=== PATIENT | female | born 1985 | race Caucasian/White ===

== ENCOUNTER 2019-12-04 10:29 | Outpatient (CLI) | payer OTHER, SELFPAY ==
[2019-12-04 11:05] LABS: Alanine Aminotransferase 22 U/L (4-35); Albumin Level 4.4 g/dL (3.5-5.1); Alkaline Phosphatase 54 U/L (38-126); Aspartate Amino Transferase 21 U/L (14-36); Bilirubin,Total 0.3 mg/dL (0.2-1.3)
[2019-12-04 11:57] LABS: Free T4 Free Thyroxine 0.74 ng/mL (0.78-2.19)
== END 2019-12-04 10:30 | disposition home or self-care (01) ==
PROVIDERS: PCP Family Medicine; Visit Provider Obstetrics & Gynecology
DX: R23.2 Flushing (principal); R74.8 Abnormal levels of other serum enzymes
CPT/HCPCS: 36415; 80076; 83001; 84439; 84443

== ENCOUNTER 2020-03-23 10:19 | Outpatient (CLI) | payer OTHER, SELFPAY ==
--- NOTE | ~2020-03-23 | US_ITS ---
EXAMINATION: US pelvic complete w TV EXAM DATE: 03/23/2020 12:21 INDICATION: Pelvic, perineal pain. TECHNIQUE: Pelvic transabdominal and transvaginal sonogram was performed. There are multiple graysca le and Doppler images available for interpretation. Comparison is made to prior examination from 2013. FINDINGS: Uterus measures 7.7 x 5.6 x 3.8 cm, is anteverted and morphologically normal. Endometrial stripe measures 6 mm, within normal limits. There is a nabothian cyst. There is no free pelvic flui d. Right adnexa: The ovary measures 3.6 x 1.5 x 2.0 cm and is morphologically normal. Ovarian vascular f low confirmed. Left adnexa: The ovary measures 3.8 x 2.1 x 2.1 cm and is morphologically normal. Ovarian vascular fl ow confirmed. IMPRESSION: 1. Unremarkable pelvic ultrasound exam. Reviewed, dictated and finalized at location A.
== END 2020-03-23 10:20 | disposition home or self-care (01) ==
LOC: ANHIMG 10:22
PROVIDERS: PCP Family Medicine; Visit Provider Obstetrics & Gynecology
DX: R10.2 Pelvic and perineal pain (principal)
CPT/HCPCS: 76830; 76856

== ENCOUNTER 2021-08-27 11:00 | Outpatient (CLI) | payer OTHER, SELFPAY ==
[2021-08-27 11:51] LABS: Alanine Aminotransferase 19 U/L (4-35); Albumin Level 4.8 g/dL (3.5-5.1); Alkaline Phosphatase 55 U/L (38-126); Aspartate Amino Transferase 23 U/L (14-36); Bilirubin,Total 0.6 mg/dL (0.2-1.3)
== END 2021-08-27 11:01 | disposition home or self-care (01) ==
LOC: ANHLAB 11:02
PROVIDERS: PCP Family Medicine; Visit Provider Obstetrics & Gynecology
DX: Z13.9 Encounter for screening, unspecified (principal)
CPT/HCPCS: 36415; 80076

== ENCOUNTER 2021-09-24 11:28 | Outpatient (CLI) | payer OTHER, SELFPAY | END 2021-09-24 11:29 | disposition home or self-care (01) | LOC: ANHSURGERY 11:34 | PROVIDERS: PCP Family Medicine; Visit Provider Obstetrics & Gynecology | DX: Z01.812 Encounter for preprocedural laboratory examination (principal); R10.2 Pelvic and perineal pain | CPT/HCPCS: 36415; 86850; 86900; 86901 ==

== ENCOUNTER 2021-09-30 02:29 | Day surgery (SDC) | payer OTHER, MEDICARE, SELFPAY ==
[2021-09-21 11:25] VITALS: BMI 26.2
--- NOTE | 2021-09-21 11:38 | PC.NURSE ---
Report to the Outpatient Waiting Room, entrance under the green pavilion located off [facility], at time 6:30 on date 09/30/21. OR Time: 8:30. - You will be asked a series of questions to screen for COVID 19 for your protection. - A mask is required within the hospital. - No visitors are allowed at this time. Preoperative COVID Testing Requirements: TO BRING COPY OF COVID CARD No COVID Test needed if: (proof is required; if not received patient will have Rapid Test prior to entry) - Patient has received COVID Vaccine at least 14 days prior to procedure date or - Patient has positive COVID test result within last 90 days of surgery date. COVID Test needed if above criteria is not met Patients may have clear liquids (water, carbonated beverages, clear teas, apple juice) until 3 hours prior to surgery (5:30) with a maximum of 20 ounces. - No food from midnight until time of surgery Take the following medications with a SIP of water the morning of surgery: ORILISSA Medications to discontinue per physician: VITAMINS/SUPPLEMENTS Date to take last dose: 09/26/21 Please no make-up, nail pakistani, hairspray, perfume, deodorant, or body powder the day of surgery. No jewelry (including any body piercings) or valuables the day of surgery, leave them at home. Please take a shower or bath the night before, or the morning of, surgery with an antibacterial soap. Wear comfortable, loose fitting clothing. - Jewelry must be removed prior to entering the operating room. Rings and piercings that are not removed may be cut off. - The hospital will not accept responsibility for valuables. - Please leave all valuables, including medications, at home the day of surgery. If you are going home after surgery, a licensed courtesy car driver must drive you home. - NO public transportation without another adult. - We recommend that an adult stay with you for 24 hours following discharge. - We also recommend that you do not drive, make important decision, drink alcoholic beverages, or take any drugs that were not prescribed by your health care provider for at least 24 hours after your discharge time. Follow any additional instructions given to you from your surgeon. Telephone instructions given to ORALIA MOSER and asked if any additional questions and then verbalized understanding. Patient advised to call surgeon office or pre surgery nurse liaison [phone] if any additional questions.
--- NOTE | 2021-09-29 16:15 | WPDANESEPPF ---
Anes - Initial Pre Proc Eval Procedure: Operation Date: 09/30/21 07:30 Proposed Procedures p Robotic Hysterectomy with Bilateral Salpingectomy - Manas Davila MD Date/Time: 09/29/21 16:15 Surgeon: Manas Davila MD Pre Op Diagnosis: Pelvic Pain Patient Data Age: 36 Gender: F Height: 1.71 m Weight: 77.11 kg Allergies Allergy/AdvReac Type Severity Reaction Status Date / Time azithromycin Allergy Intermediate swelling Verified 09/21/21 11:23 Home Medications Medication Instructions Recorded Confirmed Type melatonin 5 mg capsule 5 mg PO HS PRN 12/04/19 09/21/21 History elagolix 150 mg tablet 150 mg PO DAILY #90 tablet 08/27/21 09/21/21 Rx Patient hx anesthesia problems: none Family hx anesthesia problems: none Results Review: All pre-operative results and documents have been reviewed as part of the pre-operative evaluation. [facility] Past Medical History Medical History (Updated 09/29/21 @ 17:35 by Manas Davila MD) Anxiety Bipolar disorder Gestational diabetes Overweight (BMI 25.0-29.9) Pelvic pain Schizophrenia Secondary dysmenorrhea Vaginal delivery Surgical History Surgical History H/O tubal ligation History of delivery Family History Family History Grandparent Hypertension Heart disease Mother Depression Bipolar disorder Ovarian cancer Social History Social History Smoking packs per day: 0.5 Smoking cigarettes per day: 10.0 Years smoked: 15 Smoking pack-years: 7.50 Smoking status: Former smoker Tobacco type: cigarettes Second hand tobacco smoke exposure: No Smoking end date: 09/15/21 Additional smoking assessment comments: RECENTLY STOPPED SMOKING Alcohol intake: never Alcohol use details: once or twice a year per patient Substance use: never Substance use type: does not use Living arrangements: with family Spiritual care concerns: No Anes - Eval Final PreProcedure Day of Procedure 09/29/21 16:15 Patient weight: overweight Heart: regular rate and rhythm Lungs: clear to auscultation and normal air movement Airway: Mallampati scale class II Neurological: alert and oriented Last oral intake: >/= 8 hours ASA classification: II Emergent: no Anesthetic plan: proceed Anesthesia type and monitoring: general ETT Results Review: All pre-operative results and documents have been reviewed as part of the pre-operative evaluation. Informed Consent: The patient's anesthetic plan and its attendant risks and benefits were discussed with the patient/family/POA. Questions were solicited and answers provided to the satisfaction of the patient/family/POA.
--- NOTE | 2021-09-29 17:22 | PM.IMHP ---
H&P: HPI History of Present Illness Date/Time: 09/29/21 17:22 Patient with long history of dysmenorrhea and heavy periods. She has a history of endometriosis. She has been tried on Orilissa which did help her endometriosis symptoms and she is nearing the recommended two year duration of it. She does get pain if she is one day off from renewing the medication. She has been given options of trial of Lupron. She has tried other hormonal options in past and it has not worked. She desires definitive treatment with hysterectomy. She declines all other non definitive options and does not want to try any other hormonal options. She has had a normal endometrial biopsy. She has been informed that endometriosis symptoms and lesions can occur as long as she has hormones and could still have different endometriosis sympt Chief Complaint: Pelvic pain dysmenorrhea, endometriosis. Review of Systems Review of Systems: All systems reviewed & are unremarkable except as noted in HPI and below Cardiovascular: Cardiovascular: Reports no additional cardiovascular complaints, Denies chest pain and Denies dyspnea Respiratory: Respiratory: Reports no additional respiratory complaints and Denies dyspnea Gastrointestinal: Gastrointestinal: Reports abdominal pain, Denies change in bowel habits, Denies diarrhea, Denies nausea and Denies vomiting Genitourinary: Genitourinary: Reports pelvic pain Musculoskeletal: Musculoskeletal: Reports back pain Integumentary/Breasts: Skin/Breast: Reports system reviewed and no additional complaints, except as docu Neurologic: Reports system reviewed and no additional complaints, except as documented PMFSH Past Medical History Medical History (Updated 09/29/21 @ 17:35 by Manas Davila MD) Anxiety Bipolar disorder Gestational diabetes Overweight (BMI 25.0-29.9) Pelvic pain Schizophrenia Secondary dysmenorrhea Vaginal delivery Surgical History Surgical History H/O tubal ligation History of delivery Family History Family History Grandparent Hypertension Heart disease Mother Depression Bipolar disorder Ovarian cancer Social History Social History Smoking packs per day: 0.5 Smoking cigarettes per day: 10.0 Years smoked: 15 Smoking pack-years: 7.50 Smoking status: Former smoker Tobacco type: cigarettes Second hand tobacco smoke exposure: No Smoking end date: 09/15/21 Additional smoking assessment comments: RECENTLY STOPPED SMOKING Alcohol intake: never Alcohol use details: once or twice a year per patient Substance use: never Substance use type: does not use Living arrangements: with family Spiritual care concerns: No Meds Home Medications and Allergies Home Medications Medication Instructions Recorded Confirmed Type melatonin 5 mg capsule 5 mg PO HS PRN 12/04/19 09/21/21 History elagolix 150 mg tablet 150 mg PO DAILY #90 tablet 08/27/21 09/21/21 Rx Allergies Allergy/AdvReac Type Severity Reaction Status Date / Time azithromycin Allergy Intermediate swelling Verified 09/21/21 11:23 Exam Const: Orientation/consciousness: oriented to person and oriented to place HENMT: Head: normal to inspection Eyes: General: appearance normal, both eyes and all related structures Resp: Effort & Inspection: normal respiratory effort Auscultation: clear to auscultation bilaterally Cardio: Rate: regular rate Rhythm: regular rhythm GI: Inspection: normal to inspection GI Palp: No Rebound tenderness present : External Female Exam: normal external appearance Speculum Exam - Vagina: normal appearance of the vagina Speculum Exam - Cervix: normal appearance of the cervix Bimanual exam- vagina & uterus: normal bimanual exam Bimanual Exam- Adnexa, other: no masses Neuro:
[2021-09-30] VITALS (13 sets, daily range): BP systolic 121–136; BP diastolic 65–88; PULSE 62–82; RESP 12–18; TEMP 36.3–36.6; O2SAT 94–100
[2021-09-30] MEDS: ACETAMINOPHEN 500 MG TABLET 1000 MG PO (06:58)
[2021-09-30] MEDS: KETOROLAC 15 MG/ML VIAL (*BKC) IV PUSH (07:01)
[2021-09-30] MEDS: LACTATED RINGERS 1,000 ML 30 ML IV CONT ×3 (07:01→11:24)
--- NOTE | 2021-09-30 07:15 | WPDHPUPDATE1 ---
History and Physical Update Update Date/Time: 09/30/21 07:15 History and Physical has been reviewed, including an updated exam of the patient. There are NO changes in the patient's condition. Risks, benefits, and alternatives have been discussed and questions answered. Patient agrees to proceed with procedure.
[2021-09-30] MEDS: ceFAZolin 2 GM/D5W 50 ML 2 GM/50 ML BAG IVPB (07:26)
[2021-09-30] MEDS: BUPIVACAINE/EPINEPHRINE 0.5% 30 ML VIAL INFILTRATE (07:56)
--- NOTE | 2021-09-30 09:50 | SUR.OPER ---
EBL 20ML
--- NOTE | 2021-09-30 10:00 | PM.OP ---
Procedure Note - Brief Procedure Note - Brief Date of procedure: 09/30/21 Pre-op diagnosis: Pelvic Pain 2. History of endometriosis 3. Menorrhagia Post-op diagnosis: same Procedure performed: Robotic assisted total vaginal hysterectomy with bilateral salpingectomy. Anesthesia: GETA Surgeon: Manas Davila MD Estimated blood loss (mL): 20 IV fluids (mL): 1,400 Urine output (mL): 225 Drains: No Packing: No Pathology: yes (uterus with cervix, bilateral fallopian tubes and distal segment of fallopian tubes bilaterally) Complications: No immediate complications Condition: stable Disposition: PACU Findings: small amount of endometriosis implants along fallopian tube and anterior uterus, mild scarring posterior cul de sac right side, normal appearing liver, ovaries normal appearing bilaterally
--- NOTE | 2021-09-30 10:10 | W.PM.PROC2 ---
Procedure Note - Detailed Date of Procedure 09/30/21 Pre-op Diagnosis 1.Pelvic Pain 2. History of endometriosis 3. Menorrhagia Post-op Diagnosis same Procedure Performed robotic assisted total laparoscopic hysterectomy and bilateral salpingectomy Surgeon Manas Davila MD Pleating Supervisor Jet Alvarado Anesthesia general Indications Patient with long history of dysmenorrhea and heavy periods. She has a history of endometriosis. she has been tried on medication which has helped her pain significantly the duration of medication is ending. She has tried other hormonal options in the past and they did not help and she does not want to try any other hormonal medications she desires definitive treatment with hysterectomy. Findings Right and left ovaries were normal. There was small endometrial phos is implants on the anterior uterus there were small endometriosis implant on the right broad ligament. This was cauterized and removed during the procedure. There was some mild scarring in the posterior right cul-de-sac consistent with endometriosis. Description of Procedure After informed consent was obtained she was taken to the operating room and general endotracheal anesthesia was administered. She was placed in low lithotomy position and prepped and draped in sterile fashion. Snow catheter placed in bladder. Attention was turned to the vagina speculum was inserted. Single-tooth tenaculum placed on anterior lip of the cervix the uterus sounded to 8.5 cm. The cervix was dilated to a 8 Metz dilator. The uterine manipulator was inserted and secured. A size 3.0 colp cup was secured in the vagina. Attention was turned to the abdomen with new sterile the glove and incision was made horizontal 2 cm above the umbilicus. A Veress needle was inserted confirmation into the abdomen was obtained with free flow of fluid and normal peritoneal pressures. Pneumoperitoneum of 15 mm per mercury was obtained. a small incision was made approximately 6 cm lateral to the port on the left side of the port. A size 8mm robotic port was inserted under laparoscopic visualization into the abdomen on the left side. Confirmation obtained. Attention was turned to the right side of the abdomen 6cm medial to the initial incision and incision was made and a size 8 robotic port was inserted under laparoscopic visualization. Superior and 5 mm medial to this a 10 assistant hvac mechanic port was inserted under laparoscopic visualization. Patient was placed in Trendelenburg position to the point to allow the bowel to retract out of the pelvis. The robotic arms were attached. Attention was turned to the surgical console. Attention was turned to the right round ligament which was ligated with the syncroseal. The anterior leaf of the broad ligament was further dissected to the level of the vesicouterine peritoneum. there was scarring mild of the vesicouterine peritoneum to the anterior uterus. The scar tissue was dissected from the anterior uterus with the syncroseal. The right side of the bladder was dissected from the lower uterine segment and upper cervix. The right fallopian tube distal segment to the point of the prior tubal ligation was cauterized from the broad ligament. the proximal segment remained attached to the uterus. The anterior and the posterior leaf of the broad ligament were further incised and dissected. The uterine vessels on the right were skeletonized. the right ovarian ligament was ligated The ascending uterine vessels on the right were cauterized. The posterior leaf of the broad ligament was further dissected. The uterine vessels were cauterized. Attention was turned to the left fallopian tube which The distal segment was cauterized from the broad ligament. The left round ligament was cauterized. the bladder and the scar tissue were dissected from the left side of the the lower uterus. Once the bladder was dissected below the colp cup then the posterior leaf of the broad lig
[2021-09-30] MEDS: fentaNYL CITRATE INJ (*CRX) 100 MCG/2 ML VIAL 25 MCG IV PUSH ×5 (10:38→14:07)
[2021-09-30] MEDS: oxyCODONE HCL (*CRX) 5 MG TAB IR PO (11:39)
--- NOTE | 2021-10-01 07:24 | SUR.PHASEII ---
FENTANYL WAS GIVEN 02/27/22 AT 1038, 1041, 1043, 1045, 1407, 1409, 1415, 1419. TOTAL OF 200MCG.
== END 2021-09-30 15:54 | disposition home or self-care (01) ==
PROVIDERS: PCP Family Medicine; Visit Provider Obstetrics & Gynecology
PROC: (CPT 58571; principal; 2021-09-30 07:30)
DX: N92.0 Excessive and frequent menstruation with regular cycle (principal); R10.2 Pelvic and perineal pain; N94.6 Dysmenorrhea, unspecified; N80.0 Endometriosis of uterus; N80.3 Endometriosis of pelvic peritoneum; N73.6 Female pelvic peritoneal adhesions (postinfective); D28.2 Benign neoplasm of uterine tubes and ligaments; Z87.891 Personal history of nicotine dependence
CPT/HCPCS: 58571; S2900; 88307; A9270; J0690; J1100; J1885; J2250; J2405; J2704; J2710; J3010; J7030; J7120

== ENCOUNTER 2022-10-09 09:17 | Outpatient (CLI) | payer BC, SELFPAY ==
[2022-10-09 09:33] LABS: Basophils Absolute Auto 0.1 K/mm3 (0.0-0.1); Basophils Percent Auto 0.6 % (0.2-1.2); Eosinophils Absolute Auto 0.2 K/mm3 (0-0.3); Eosinophils Percent Auto 1.7 % (0-4.4); Hematocrit 42.1 % (37.0-47.0); Hemoglobin 13.6 g/dL (12.0-15.0); Immature Granulocyte Absolute 0.03 K/mm3 (0.00-0.031); Immature Granulocyte Percent A 0.3 % (0-0.5); Lymphocytes Absolute Auto 2.75 K/mm3 (0.9-3.2); Mean Corpuscular HGB Conc 32.3 g/dl (32-36); Mean Corpuscular Hemoglobin 29.8 pg (26-34); Mean Corpuscular Volume 92.3 fl (80-100); Mean Platelet Volume 12.6 fl (7.4-10.4); Monocytes Absolute Auto 0.5 K/mm3 (0.1-0.6); Monocytes Percent Auto 5.7 % (2.6-8.5); Neutrophils Absolute Auto 5.4 K/mm3 (1.3-6.7); Neutrophils Percent Auto 60.7 % (45.5-73.1); Platelet Count Result 219 k/mm3 (150-375); Red Blood Count 4.56 M/mm3 (4.2-5.4); Red Cell Distribution Width 13.2 % (11.5-14.5); White Blood Count 8.9 K/mm3 (4.5-10.0)
[2022-10-09 09:49] LABS: Alanine Aminotransferase 40 U/L (6-35); Albumin Level 4.5 g/dL (3.5-5.1); Alkaline Phosphatase 53 U/L (38-126); Anion Gap 6 mmol/L (8-16); Aspartate Amino Transferase 23 U/L (14-36); Bilirubin,Total 0.4 mg/dL (0.2-1.3); Blood Urea Nitrogen 12 mg/dL (7-17); Carbon Dioxide 28 mmol/L (22-30); Chloride 107 mmol/L (98-107); Cholesterol 142 mg/dL (0-200); Estimated Glomerular Filt Rate > 60; Glucose 113 mg/dL (65-110); HDL Direct 32 mg/dL; Potassium 4.1 mmol/L (3.4-5.0); Sodium 141 mmol/L (137-145); Triglycerides 88 mg/dL (<150)
[2022-10-09 10:00] LABS: LDL Cholesterol Direct 87 mg/dL
== END 2022-10-09 09:18 | disposition home or self-care (01) ==
LOC: ANHLAB 09:19
PROVIDERS: PCP Family Medicine; Visit Provider Physician Assistant Medical
DX: R53.83 Other fatigue (principal); E78.2 Mixed hyperlipidemia
CPT/HCPCS: 36415; 80053; 80061; 85025

== ENCOUNTER 2022-11-05 01:55 | Day surgery (SDC) | payer BC, SELFPAY ==
[2022-10-28 14:26] VITALS: BMI 26.2
--- NOTE | 2022-11-05 09:09 | WPDANESEPPF ---
Anes - Initial Pre Proc Eval Procedure: Operation Date: 11/05/22 11:30 Proposed Procedures p Esophagogastroduodenoscopy - Jet Acosta MD Date/Time: 11/05/22 09:09 Surgeon: Jet Acosta MD Pre Op Diagnosis: nausea,early satiety, epigastric discomfort Patient Data Age: 37 Gender: F Height: 1.7 m Weight: 76 kg Allergies Allergy/AdvReac Type Severity Reaction Status Date / Time azithromycin Allergy Intermediate swelling Verified 11/05/22 10:53 Home Medications Medication Instructions Recorded Confirmed Type melatonin 10 mg capsule 10 mg PO QHS 10/06/22 10/28/22 History omeprazole 40 mg capsule,delayed 40 mg PO DAILY #90 caps 10/06/22 10/28/22 Rx release polyethylene glycol 3350 17 17 g PO DAILY 10/28/22 10/28/22 History gram/dose oral powder (Miralax) Patient hx anesthesia problems: none Family hx anesthesia problems: none Results Review: All pre-operative results and documents have been reviewed as part of the pre-operative evaluation. [facility] Past Medical History Medical History (Updated 10/14/22 @ 09:05 by Maribell Emery APRN) Anxiety Bipolar disorder Chronic constipation Early satiety Epigastric discomfort Gestational diabetes Nausea Overweight (BMI 25.0-29.9) Pelvic pain RLQ abdominal pain Schizophrenia Secondary dysmenorrhea Vaginal delivery Surgical History Surgical History H/O bilateral salpingectomy H/O tubal ligation History of delivery History of robot-assisted laparoscopic hysterectomy Family History Family History Grandparent Hypertension Heart disease Mother Depression Bipolar disorder Ovarian cancer Alcoholism Social History Social History Smoking packs per day: 0.5 Smoking cigarettes per day: 10.0 Years smoked: 13 Smoking pack-years: 6.50 Smoking status: Current every day smoker Tobacco type: cigarettes Second hand tobacco smoke exposure: No Smoking end date: 09/15/21 Additional smoking assessment comments: RECENTLY STOPPED SMOKING Alcohol intake: never Alcohol use details: once or twice a year per patient Substance use: never Substance use type: does not use Lack of Transportation: No Lack of Food: Never True Current Housing: I Have Housing Concerned About Future Housing: No Difficulty Paying Gas/Electric Bills: No Difficulty Paying for Meds: YES Currently Unemployed: No Education: Bachelor's Degree Difficulty w/ Childcare or Family Care: No Living arrangements: with family Occupation/Education: occupation 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 Gender identity (if verbalized by the patient): Female Sexual Orientation (if Verbalized by the Patient): Straight or Heterosexual Spiritual care concerns: No Agree to blood products: Yes Anes - Eval Final PreProcedure Day of Procedure 11/05/22 09:09 Patient weight: overweight Heart: regular rate and rhythm Lungs: clear to auscultation Airway: Mallampati scale class II Neurological: alert and oriented Last oral intake: >/= 8 hours ASA classification: II Emergent: no Anesthetic plan: proceed Anesthesia type and monitoring: general GIVS and standard monitoring Results Review: All pre-operative results and documents have been reviewed as part of the pre-operative evaluation. Informed Consent: The patient's anesthetic plan and its attendant risks and benefits were discussed with the patient/family/POA. Questions were solicited and answers provided to the satisfaction of the patient/family/POA.
[2022-11-05 10:55] VITALS: BP 116/77; PULSE 70; RESP 20; TEMP 36.6; O2SAT 100; BMI 25.4
[2022-11-05] MEDS: LACTATED RINGERS 1,000 ML 150 ML IV CONT (11:06)
--- NOTE | 2022-11-05 11:10 | WPDHPUPDATE1 ---
History and Physical Update Update Date/Time: 11/05/22 11:10 History and Physical has been reviewed, including an updated exam of the patient. There are NO changes in the patient's condition. Risks, benefits, and alternatives have been discussed and questions answered. Patient agrees to proceed with procedure.
[2022-11-05 11:50] VITALS: BP 91/56; PULSE 68; RESP 17; O2SAT 97
[2022-11-05 12:00] VITALS: BP 102/64; PULSE 72; RESP 19; O2SAT 99
[2022-11-05 12:10] VITALS: BP 117/86; PULSE 67; RESP 24; O2SAT 100
== END 2022-11-05 12:16 | disposition home or self-care (01) ==
PROVIDERS: PCP Family Medicine; Visit Provider Internal Medicine Gastroenterology
PROC: 0DJ08ZZ Inspection of Upper Intestinal Tract, Via Natural or Artificial Opening Endoscopic (ICD-10-PCS; CPT 43235; principal; 2022-11-05 11:30)
DX: R11.0 Nausea (principal); R10.13 Epigastric pain; Z87.891 Personal history of nicotine dependence
CPT/HCPCS: 43239; 87081; J2704; J7120

== ENCOUNTER 2025-04-25 12:34 | Outpatient (CLI) | payer BC, SELFPAY ==
[2025-04-26 10:08] LABS: FSH 5.3 mIU/mL (.)
== END 2025-04-25 12:35 | disposition home or self-care (01) ==
PROVIDERS: PCP Family Medicine; Visit Provider Nurse Practitioner Obstetrics & Gynecology
DX: N95.1 Menopausal and female climacteric states (principal)
CPT/HCPCS: 83001

== ENCOUNTER 2025-05-07 07:49 | Outpatient (CLI) | payer BC, SELFPAY ==
--- OUTSIDE RECORDS SUMMARY | 2025-05-07 07:57 | XMS_ITS | Clinical Summary ---
Author Organization [facility] Address [address] [place] [address] Care Team Providers Care Fence Builder Name Role Phone Perlita Carbajal MD Primary Care Provider [phone] Source Comments [facility],non-owned Affiliates and Associated Physician Practices is amultiple site organization consisting of ambulatory clinics and hospital sitesin [place], [place], [place] and [place]. This disclosure is being madepursuant to the Care Everywhere program and may not contain all information available regarding this patient. Last updated 18.[facility] Allergies Active Allergy Reactions Criticality Noted Date Comments Azithromycin 05/01/2013 Medications * Be aware that medications may not be up to date on this document. Alwaysverify current medications with the patient. piroxicam (FELDENE) 20 MG capsule Take 1 Cap by mouth once daily. 30 Cap 3 04/26/2013 Active hydrocodone-acet aminophen (NORCO) 5-325 MG tablet Active loxapine (LOXITANE) 50 MG capsule Active Active Problems Problem Noted Date Diagnosed Date Cervicalgia 05/01/2013 Lumbago 05/01/2013 Degeneration of lumbar or lumbosacral interverte bral disc 05/01/2013 Social History Tobacco Use Types Packs/Day Years Used Date Smoking Tobacco: Every Day Alcohol Use Standard Drinks/Week Comments Yes 0 (1 standard drink = 0.6 oz pur e alcohol) Comments Unknown Sex and Gender Information Value Date Recorded Sex Assigned at Not on file Legal Sex Female 3:00 PM CDT Gender Identity Not on file Sexual Orientation Not on file Last Filed Vital Signs Vital Sign Reading Time Taken Comments Blood Pressure 126/84 05/01/2013 1:32 PM CDT Pulse 64 05/01/2013 1:32 PM CDT Temperature - - Respiratory Rate - - Oxygen Saturation - - Inhaled Oxygen Concentration - - Weight 72.6 kg (160 lb) 05/01/2013 1:32 PM CDT Height 170.2 cm (5' 7) 05/01/2013 1:32 PM CDT Body Mass Index 25.06 05/01/2013 1:32 PM CDT Plan of Treatment Health Maintenance Due Date Last Done Comments LIPID TESTING 1985 MAMMOGRAM 1985 HIV SCREENING 2000 HEPATITIS C SCREENING 04/23/2003 DTAP/TDAP/TD VACCINES (1 - Tdap) 2004 HEPATITIS B VACCINE (1 of 3 - 19+ 3-dose series) 2004 PNEUMOCOCCAL VACCINE (1 of 2 - PCV) 2004 HPV VACCINE (1 - 3-dose SCDM series) 2012 DEPRESSION SCREENING 08/15/2024 COVID-19 VACCINE (1 - 4-2 5 season) 2025 INFLUENZA VACCINE (#1) 2025 ZOSTER VACCINE (1 of 2) 2035 HIB VACCINE Aged Out No longer eligi ble based on patient's age to complete this topic MENINGOCOCCAL (Group B) VACC INE SHARED DECISION-MAKING Aged Out No longer eligibl e based on patient's age to complete this topic MENINGOCOCCAL GROUPS A/C/Y/W VACCINE Aged Out No longer eligible b ased on patient's age to complete this topic Insurance MEDICARE [facility] Care Teams Fence Builder Relationship Specialty Start Date End Date Perlita Carbajal MD [address] [place] [address] PCP - General 10/05/21
[2025-05-07 08:38] LABS: Hematocrit 40.3 % (37.0-47.0); Hemoglobin 12.7 g/dL (12.0-15.0); Immature Granulocyte Percent A 0.5 % (0-0.5); Lymphocytes Absolute Auto 1.92 K/mm3 (0.9-3.2); Mean Corpuscular HGB Conc 31.5 g/dl (32-36); Mean Corpuscular Hemoglobin 30.4 pg (26-34); Mean Corpuscular Volume 96.4 fl (80-100); Nucleated Red Blood Cells Absolute Auto 0.000 K/mm3 (0.0-0.012); Nucleated Red Blood Cells Perc 0.0 % (0.0-0.2); Platelet Count Result 170 k/mm3 (150-375); Red Blood Count 4.18 M/mm3 (4.2-5.4); White Blood Count 9.5 K/mm3 (4.5-10.0)
[2025-05-07 09:00] LABS: Alanine Aminotransferase 24 U/L (6-35); Albumin Level 4.1 g/dL (3.5-5.1); Alkaline Phosphatase 53 U/L (38-126); Anion Gap 5 mmol/L (4-12); Aspartate Amino Transferase 22 U/L (14-36); Bilirubin,Total 0.4 mg/dL (0.2-1.3); Blood Urea Nitrogen 12 mg/dL (7-17); Calcium 8.8 mg/dL (8.4-10.2); Carbon Dioxide 28 mmol/L (22-30); Chloride 103 mmol/L (98-107); Cholesterol 180 mg/dL (0-200); Estimated Glomerular Filt Rate > 60; Glucose 138 mg/dL (65-110); HDL Direct 37 mg/dL; Potassium 4.2 mmol/L (3.4-5.0); Sodium 136 mmol/L (137-145); Total Protein 6.8 g/dL (6.3-8.2); Triglycerides 83 mg/dL (<150)
[2025-05-07 10:04] LABS: Hemoglobin A1C 6.7 % (<5.7)
== END 2025-05-07 07:50 | disposition home or self-care (01) ==
LOC: ANHLAB 07:49
PROVIDERS: PCP Family Medicine; Visit Provider Student in an Organized Health Care Education/Training Program
DX: Z13.220 Encounter for screening for lipoid disorders (principal); D72.829 Elevated white blood cell count, unspecified; R73.09 Other abnormal glucose; Z13.1 Encounter for screening for diabetes mellitus
CPT/HCPCS: 36415; 80053; 80061; 83036; 85025